=== PATIENT | female | born 1940 | race Caucasian/White ===

== ENCOUNTER 2017-06-25 18:02 | Emergency (ER) | payer MEDICARE ==
[~2017-06-25] VITALS: Ht 170.2 cm; Wt 83.9 kg
[2017-06-25 18:05] VITALS: BP 186/99; PULSE 80; RESP 16; TEMP 97.3; O2SAT 99
[2017-06-25] MEDS ORDERED: LIDOCAINE HCL 1% 20 ML VIAL INFIL ONE (18:15)
[2017-06-25] MEDS ORDERED: TETANUS/DIPHTHERIA TOXOID ADULT 0.5 ML VIAL IM ONE (18:15)
[2017-06-25] MEDS ORDERED: AMOXICILLIN/CLAVULANATE K 875 MG TAB PO ONE (18:45)
[2017-06-25] MEDS ORDERED: AUGM875T3 PO (18:54)
--- NOTE | 2017-06-25 18:54 | PD ---
HPI Chief Complaint: Foreign Body Time Seen by Provider: 18:12 Travel History International Travel<30 days: No Contact w/Intl Traveler<30days: No Traveled to known affect area: No History of Present Illness HPI 76-year-old female complains of catfish patricio in the left fourth finger. Patient states that she got puncture by a catfish patricio this afternoon. Patient denies any other injury. Patient states the pain is burning pain localized to left fourth finger. Patient denies any pain radiation. Patient's not up-to- date with TD booster. On a scale of 1-10 the pain is a 7. PFSH Social History Tobacco Use: No Allergies-Medications (Allergen,Severity, Reaction): Coded Allergies: No Known Allergies (Unverified , 06/26/17) Reported Meds & Prescriptions Reported Meds & Active Scripts Active Augmentin (Amoxicillin-Clavulanate) 875-125 Mg Tab 1 Tab PO BID Review of Systems General / Constitutional: No: Fever Eyes: No: Visual changes HENT: No: Headaches Cardiovascular: No: Chest Pain or Discomfort Respiratory: No: Shortness of Breath Gastrointestinal: No: Abdominal Pain Genitourinary: No: Dysuria Musculoskeletal: Positive: Pain Skin: No Rash Neurologic: No: Weakness Psychiatric: No: Depression Endocrine: No: Polydipsia Hematologic/Lymphatic: No: Easy Bruising Physical Exam Narrative GENERAL: Well-nourished, well-developed patient. SKIN: Focused skin assessment warm/dry. HEAD: Normocephalic. EYES: No scleral icterus. No injection or drainage. NECK: Supple, trachea midline. No JVD or lymphadenopathy. CARDIOVASCULAR: Regular rate and rhythm without murmurs, gallops, or rubs. RESPIRATORY: Breath sounds equal bilaterally. No accessory muscle use. GASTROINTESTINAL: Abdomen soft, non-tender, nondistended. MUSCULOSKELETAL: No cyanosis, or edema. BACK: Nontender without obvious deformity. No CVA tenderness. Patient has a catfish patricio puncture wound left fourth finger ulnar aspect of the PIP joint. Data Data Last Documented VS Vital Signs Date Time Temp Pulse Resp B/P (MAP) Pulse Ox O2 Delivery O2 Flow Rate FiO2 06/25/17 19:01 97.4 78 15 168/88 (114) 99 Orders Orders Lidocaine 1% Inj (Xylocaine 1% Inj) (06/25/17 18:15) Tetanus/Diphtheria Tox Adult (Tetanus/Di (06/25/17 18:15) Amoxicil-Clavulanate (Augmentin) (06/25/17 18:45) Ed Discharge Order (06/25/17 18:54) [facility] Medical Decision Making Medical Screen Exam Complete: Yes Emergency Medical Condition: Yes Differential Diagnosis Differential diagnosis including foreign body left fourth finger. Narrative Course 76-year-old female with catfish patricio embedded in the left fourth finger. TD booster given. Augmentin 875 one tablet by mouth given. Procedures Procedure Narrative 1% lidocaine local anesthesia. Betadine wash. The Fish patricio was removed with forceps. The wound was irrigated saline solution. Dressing applied. Diagnosis Primary Impression: Foreign body of finger of left hand Qualified Codes: S60.459A - Superficial foreign body of unspecified finger, initial encounter Patient Instructions: General Instructions Additional Instructions: Take Augmentin as directed.. Keep head elevated. Tylenol and Advil for pain. Return in a.m. for recheck. Med/Other Pt SpecificInfo: Prescription(s) given Scripts Amoxicillin-Clavulanate (Augmentin) 875-125 Mg Tab 1 TAB PO BID for Infection, #14 TAB 0 Refills Prov: Gaurang Guerra MD 06/25/17 Disposition: 01 DISCHARGE HOME Condition: Stable Gaurang Guerra MD Jun 25, 2017 18:54
[2017-06-25 19:01] VITALS: BP 168/88; TEMP 97.4
== END 2017-06-25 19:27 | disposition home or self-care (01) ==
LOC: PHED 18:02
DX: S60.455A Superficial foreign body of left ring finger, initial encounter (principal); Z23 Encounter for immunization; W56.52XA Struck by other fish, initial encounter
CPT/HCPCS: 10120; 90471; 90714

== ENCOUNTER 2017-06-26 13:25 | Emergency (ER) | payer MEDICARE, OTHER ==
[~2017-06-26] VITALS: Ht 170.2 cm; Wt 85.1 kg
[~2017-06-26 13:25] MED LIST: AUGM875T3 PO
[2017-06-26 13:28] VITALS: BP 149/80; PULSE 71; RESP 16; TEMP 98.8; O2SAT 100
--- NOTE | 2017-06-26 14:30 | PD ---
HPI Chief Complaint: Wound/Suture/Staple Re-Check Time Seen by Provider: 14:25 Travel History International Travel<30 days: No Contact w/Intl Traveler<30days: No Traveled to known affect area: No History of Present Illness HPI Patient comes in complaining of recheck of a puncture wound to her left ring finger that occurred yesterday with a catfish patricio. Patient states she was instructed to come back today for recheck. Patient reports symptoms have improved and swelling has gone down. Patient states she does have some decreased range of motion secondary to pain. Patient describes pain is mild throbbing without radiation. Denies anything making it better. Touching it makes it worse. Denies any numbness or tingling. Denies any fever. Patient reports taking antibiotic as prescribed. PFSH Past Medical History Diminished Hearing: No ?: Not Menopausal: Yes Past Surgical History Other Surgery: Yes (Left breast lumpectomy) Social History Alcohol Use: Yes (ocassional wine) Tobacco Use: No Substance Use: No Allergies-Medications (Allergen,Severity, Reaction): Coded Allergies: No Known Allergies (Unverified , 06/26/17) Reported Meds & Prescriptions Reported Meds & Active Scripts Active Augmentin (Amoxicillin-Clavulanate) 875-125 Mg Tab 1 Tab PO BID Review of Systems Except as stated in HPI: all other systems reviewed are Neg Physical Exam Narrative GENERAL: Well-developed, overly nourished, in no acute distress, and non-ill appearing. SKIN: Well-healing wound noted over the medial aspect of the right ring finger. There is mild soft tissue edema. There is minimal erythematous. There is no crepitus. Patient is neurovascularly intact distally. HEAD: Atraumatic. Normocephalic. EYES: Pupils equal and round. EOMI. No scleral icterus. No injection or drainage. ENT: No nasal bleeding or discharge. Mucous membranes pink and moist. NECK: Trachea midline. Supple. No nuclear rigidity. CARDIOVASCULAR: Capillary refill less than 2 seconds. RESPIRATORY: No accessory muscle use. No respiratory distress. MUSCULOSKELETAL: No obvious deformities. No clubbing. No cyanosis. No edema. Full range of motion. NEUROLOGICAL: Awake and alert. No obvious cranial nerve deficits. Motor grossly within normal limits. Normal speech. PSYCHIATRIC: Appropriate mood and affect; insight and judgment normal. Data Data Last Documented VS Vital Signs Date Time Temp Pulse Resp B/P (MAP) Pulse Ox O2 Delivery O2 Flow Rate FiO2 06/26/17 13:28 98.8 71 16 149/80 (103) 100 Orders Orders Ed Discharge Order (06/26/17 14:31) Wound Care (06/26/17 14:31) MDM Medical Decision Making Medical Screen Exam Complete: Yes Emergency Medical Condition: Yes Medical Record Reviewed: Yes Differential Diagnosis Wound infection, wound recheck, dressing change, other Narrative Course Patient in no obvious distress upon re-evaluation. Any questions/concerns in reference to patient diagnosis/condition discussed and clarified prior to patient's discharge. Reinforced sheer importance of close follow up with patient 's primary physician or primary care clinic and/or hand surgeon. Instructed patient to return to ED immediately, if symptoms return/worsen. Patient showed understanding of above instructions. Further instructions and recommendations were detailed in discharge paperwork. Patient ambulated without difficulty out of ED at discharge. Diagnosis Primary Impression: Encounter for wound re-check Referrals: Carlos Restrepo MD Patient Instructions: General Instructions, Puncture Wound (ED) Additional Instructions: Follow-up with your primary care physician and/or hand surgeon next week for reevaluation. Take all medication as previously prescribed. Keep wound dry and clean as possible using soap and water. Do not soak or submerge wound. Return to the emergency department if symptoms get worse. Disposition: 01 DISCHARGE HOME Condition: Stable Henrry Deluna Jun 26, 2017 14:30
== END 2017-06-26 14:40 | disposition home or self-care (01) ==
LOC: PHEFT 13:25
DX: S69.82XD Other specified injuries of left wrist, hand and finger(s), subsequent encounter (principal); W56 Contact with nonvenomous marine animal
CPT/HCPCS: 99281